=== PATIENT | male | born 1990 | race African-American/Black ===

== ENCOUNTER 2018-08-17 11:10 | Emergency (ER) | payer OTHER ==
[2018-08-17] MEDS: IBUPROFEN 600 MG TAB PO (12:15)
== END 2018-08-17 13:19 | disposition home or self-care (01) ==
LOC: FTE 11:10
DX: S89.92XA Unspecified injury of left lower leg, initial encounter (principal); X58.XXXA Exposure to other specified factors, initial encounter; Y92.310 Basketball court as the place of occurrence of the external cause
CPT/HCPCS: 29505; 73562; 99283-25